=== PATIENT | male | born 1970 | race Caucasian/White ===

== ENCOUNTER → 2016-08-31 | Outpatient (CLI) | payer OTHER ==
--- NOTE | 2016-08-31 09:08 | US ---
Limited Right Upper Quadrant Ultrasound History: Elevated LFTs. Comparison: CT abdomen and pelvis June 22, 2008. Findings: The liver is diffusely echogenic with no focal hepatic masses. The right lobe of the liver measures 20 cm. There is no intrahepatic biliary dilatation. The common bile duct measures 4 mm and is normal. The gallbladder is normal. The right kidney measures 10.4 cm and has normal echotexture an d contour without hydronephrosis. The visible aorta is normal caliber with obscuration of portions of the aorta by overlying bowel gas. The visible portions of the pancreas are normal with limited visu alization of the pancreatic head and tail. Impression: Fatty enlarged liver.
== END ==
LOC: FIMAGING 07:26
PROVIDERS: ATTEND Family Medicine
DX: K76.0 Fatty (change of) liver, not elsewhere classified (principal)